=== PATIENT | male | born 1955 | race Caucasian/White ===

== ENCOUNTER → 2022-06-01 | Outpatient (CLI) | payer MEDICARE ==
[2022-06-01 23:07] LABS: Basophils # (A) 0.04 X 10*3/uL (0.00-0.10); Basophils % (A) 0.7 %; Eosinophils # (A) 0.14 X 10*3/uL (0.04-0.35); Eosinophils % (A) 2.3 %; HCT 41.9 % (39.6-50.0); HGB 14.2 g/dL (13.0-17.0); Immature Grans, Automated 0.2 %; Lymphocytes # (A) 1.16 X 10*3/uL (0.90-5.00); Lymphocytes % (A) 18.9 %; MCH 30.5 pg (27.0-32.0); MCHC 33.9 g/dL (32.0-37.0); MCV 89.9 fL (80.0-97.0); Mean Platelet Volume 11.1 fL (9.5-12.2); Monocytes # (A) 0.41 X 10*3/uL (0.20-1.00); Monocytes % (A) 6.7 %; NRBC Per 100 WBC 0 /100 WBCS (0.0-0.0); Neutrophils # (A) 4.38 X 10*3/uL (1.80-7.70); Neutrophils % (A) 71.2 %; Platelet Count 186 X 10*3/uL (140-440); RBC 4.66 X 10*6/uL (4.40-5.60); RDW 14.3 % (11.5-14.5); WBC 6.14 X 10*3/uL (4.50-10.00)
[2022-06-02 01:37] LABS: African American GFR (CKD) 84.1 (60.0-200.0); Anion Gap 9.9 mmol/L (10.00-18.00); BUN/Creat Ratio 16.19 Ratio (12.00-20.00); Calcium 8.9 mg/dL (8.7-10.3); Carbon Dioxide 24.8 mmol/L (20.0-27.5); Non-African American GFR(CKD) 72.6 (60.0-200.0); Potassium 4.3 mmol/L (3.5-5.5)
== END | disposition home or self-care (01) ==
LOC: LABPAT 14:48
PROVIDERS: ATTEND Urology
DX: Z01.812 Encounter for preprocedural laboratory examination (principal); C61 Malignant neoplasm of prostate
CPT/HCPCS: 80048; 85025

== ENCOUNTER → 2022-06-08 | Day surgery (SDC) | payer BC, MEDICARE ==
--- NOTE | 2022-06-07 07:08 | P.GSHP ---
History of Present Illness H&P Date: 06/07/22 Chief Complaint: Elevated PSA The patient is a 66-year-old white male with a strong family history of prostate cancer. Genetic testing has shown no mutations. He has undergone prostate biopsies on 2 occasions in the past, showing no evidence of malignancy. Prostate MRI in 2018 showed a PI-RADS 4 lesion, but repeat MRI in October 2021 showed no suspicious lesions. He underwent a Urolift implant approximately 18 months ago but continues to experience lower urinary tract symptoms despite taking tamsulosin 0.8 mg daily. 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 History of Any Multi-Drug Resistant Organisms: None Reported Past Surgical History: Appendectomy, Back Surgery, Cholecystectomy, Joint Replacement, Orthopedic Surgery Additional Past Surgical History / Comment(s): TOTAL CLIFF HIP, KNEE ARTHROSCOPY, cliff cataract removal with lens implants Past Anesthesia/Blood Transfusion Reactions: No Reported Reaction Smoking Status: Former smoker - Past Family History Father Family Medical History: Cancer Additional Family Medical History / Comment(s): colon Mother Family Medical History: Cancer Additional Family Medical History / Comment(s): breast Brother(s) Family Medical History: Cancer Additional Family Medical History / Comment(s): 1 brother with prostate ca, another brother dx with terminal cancer unknown type Medications and Allergies Home Medications Medication Instructions Recorded Confirmed Type Levothyroxine Sodium [Synthroid] 200 mcg PO DAILY 12/14/13 06/04/22 History Pantoprazole Sodium [Protonix] 40 mg PO DAILY 12/14/13 06/04/22 History Atorvastatin [Lipitor] 40 mg PO DAILY 11/15/14 06/04/22 History Ibuprofen [Advil] 200 mg PO Q8HR PRN 06/04/22 06/04/22 History amLODIPine [Norvasc] 5 mg PO DAILY 06/04/22 06/04/22 History lisinopriL [Zestril] 20 mg PO DAILY 06/04/22 06/04/22 History tadalafiL [Cialis] 5 mg PO DAILY 06/04/22 06/04/22 History Allergies Allergy/AdvReac Type Severity Reaction Status Date / Time No Known Allergies Allergy Verified 06/04/22 09:51 Surgical - Exam - General well developed, well nourished, no distress - Neck no masses, trachea midline - Respiratory normal respiratory effort - Abdomen Abdomen: soft, non tender, no guarding, no rigid, no rebound Hernia: inguinal - Genitourinary normal penis with no external lesions, testicles non-tender - Rectum Rectum: normal sphincter tone, no masses, other (Prostate moderately enlarged but smooth) - Psychiatric oriented to time, oriented to person, oriented to place, speech is normal, memory intact Assessment and Plan (1) Elevated prostate specific antigen [PSA] Status: Acute Code(s): R97.20 - ELEVATED PROSTATE SPECIFIC ANTIGEN [PSA] SNOMED Code(s): 621644733 Plan: Transrectal ultrasound of the prostate with prostate biopsies, to be done under general anesthesia at the patient's request. The procedure has been reviewed in detail with the patient. He is aware of potential risks which include anesthesia, bleeding, and infection.
[~2022-06-08] MED LIST: GENTAMICIN 140 MG in SODIUM CHLORIDE 0.9% 100 ML IVPB PRN; GENTAMICIN 40 MG/ML 2 ML VIAL IVPB ONE; HYDROmorphone 0.5 MG/0.5 ML SYRINGE IVP PRN; KETAMINE 10 MG/ML 20 ML VIAL ONE; KETOROLAC 15 MG/ML 1 ML VIAL ONE; LACTATED RINGERS 1,000 ML IV SCH; LIDOCAINE 1% (10MG/ML) FOR IV START INTRADERMA PRN; MIDAZOLAM 2 MG/2 ML VIAL ONE; ONDANSETRON 4 MG/2 ML VIAL IVP ONE; PROPOFOL 10 MG/ML 20 ML VIAL IV ONE; ceFAZolin 1,000 MG VIAL IV ONE; fentaNYL (PF) 50 MCG/ML 2 ML AMP ONE
[2022-06-08 13:35] VITALS: TEMP 97.3
--- NOTE | 2022-06-08 15:28 | P.OP ---
Date of Procedure: 06/08/22 Preoperative Diagnosis: Elevated PSA Postoperative Diagnosis: Same Procedure(s) Performed: Transrectal ultrasound of prostate with biopsies Anesthesia: MAC Surgeon: Octavio Guallpa Estimated Blood Loss (ml): 5 IV fluids (ml): 600 Pathology: other (Peripheral zone and transitional zone prostate biopsies) Condition: stable Disposition: PACU Indications for Procedure: The patient is a 66-year-old white male with a strong family history of prostate cancer. Genetic testing has shown no mutations. He has undergone prostate biopsies on 2 occasions in the past, showing no evidence of malignancy. Prostate MRI in 2018 showed a PI-RADS 4 lesion, but repeat MRI in October 2021 showed no suspicious lesions. He underwent a Urolift implant approximately 18 months ago but continues to experience lower urinary tract symptoms despite taking tamsulosin 0.8 mg daily. Operative Findings: Prostate volume 42.86 mL. No echogenic abnormalities seen. Description of Procedure: The patient was taken to the operating room and placed in the left lateral decubitus position. He was given IV sedation. The anal region was prepped with Betadine solution. The transrectal ultrasound probe was placed intrarectally. The prostate was imaged in both sagittal and axial planes. A height times with times length measurement revealed a calculated prostate volume of 42.86 mL. The predicted PSA level based upon this prostate volume is 5.14. The seminal vesicles appeared normal. The central zone appeared normal. The transitional zone showed changes consistent with BPH. No echogenic abnormalities were seen within the peripheral zone. Using the Biopty gun, under ultrasonic guidance, 12 core biopsies were obtained from the peripheral zone. An additional 3 core biopsies were obtained from the transitional zone on each side, for a total of 18 biopsies. Imaging following the biopsies showed no evidence of a periprostatic hematoma. The ultrasound probe was withdrawn and the procedure was terminated. The patient tolerated the procedure well and was taken to the recovery room in stable condition.
[2022-06-08 15:53] VITALS: BP 120/71; PULSE 52; RESP 18
== END | disposition home or self-care (01) ==
LOC: OR 13:10
PROVIDERS: ATTEND Urology
DX: N41.0 Acute prostatitis (principal); R97.20 Elevated prostate specific antigen [PSA]; K21.9 Gastro-esophageal reflux disease without esophagitis; Z90.49 Acquired absence of other specified parts of digestive tract; Z98.890 Other specified postprocedural states; Z87.891 Personal history of nicotine dependence; Z80.0 Family history of malignant neoplasm of digestive organs; Z80.42 Family history of malignant neoplasm of prostate; Z79.1 Long term (current) use of non-steroidal anti-inflammatories (NSAID); Z79.890 Hormone replacement therapy; Z79.899 Other long term (current) drug therapy; Z86.711 Personal history of pulmonary embolism
CPT/HCPCS: 55700; 76942; 88305; J2250; J0690; J3010; J1580; J1885; J2704

== ENCOUNTER → 2022-09-13 | Outpatient (CLI) | payer MEDICARE | END | disposition home or self-care (01) | LOC: LABWHC1 07:30 | PROVIDERS: ATTEND Urology | DX: C61 Malignant neoplasm of prostate (principal); R97.20 Elevated prostate specific antigen [PSA] | CPT/HCPCS: 36415; 84153 ==

== ENCOUNTER → 2023-05-16 | Outpatient (CLI) | payer MEDICARE | END | disposition home or self-care (01) | LOC: LABWHC1 10:32 | PROVIDERS: ATTEND Urology | DX: R97.20 Elevated prostate specific antigen [PSA] (principal) | CPT/HCPCS: 36415; 84153 ==

== ENCOUNTER → 2023-09-16 | Outpatient (CLI) | payer MEDICARE | END | disposition home or self-care (01) | LOC: LABWHC1 13:12 | PROVIDERS: ATTEND Urology | DX: N20.0 Calculus of kidney (principal) | CPT/HCPCS: 36415; 83970 ==

== ENCOUNTER → 2023-12-22 | Outpatient (CLI) | payer MEDICARE ==
--- NOTE | 2023-12-23 08:42 | MR ---
EXAMINATION TYPE: MR shoulder RT wo con DATE OF EXAM: 12/22/2023 COMPARISON: None HISTORY: Rt shoulder pain sudden onset, loss of ROM, no injury no sx TECHNIQUE: Multiplanar, multisequence imaging of the right shoulder is performed without contrast. FINDINGS: There is moderate osteoarthritic change of the AC joint. There are a few small subchondral cysts in the humeral head. There is a recurrent tear of the anterior supraspinatus tendon without retraction. There is tendinosi s of the infraspinatus tendon and of the subscapularis tendon without tears. The biceps tendon is normal in signal intensity and position within the bicipital groove and the huong ps anchor is intact. There is abnormal signal intensity in the superior cartilaginous labrum consiste nt with a SLAP injury. There is mild subdeltoid bursitis. IMPRESSION: 1. Rim rent tear of the supraspinatus tendon without retraction. 2. Tendinosis of the infraspinatus and subscapularis tendons. 3. 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 SLAP injury. 5. Mild subdeltoid bursitis.
== END | disposition home or self-care (01) ==
LOC: RADMRIMAIN 14:49
PROVIDERS: ATTEND Orthopaedic Surgery
DX: M67.813 Other specified disorders of tendon, right shoulder (principal); M19.011 Primary osteoarthritis, right shoulder; M75.51 Bursitis of right shoulder